=== PATIENT | male | born 2000 | race Two or more races ===

== ENCOUNTER → 2021-02-05 12:23 | Outpatient (CLI) | payer OTHER | END | disposition home or self-care (01) | LOC: RAD 12:23 | PROVIDERS: ATTEND General Practice | DX: M54.2 Cervicalgia (principal); J01.81 Other acute recurrent sinusitis ==

== ENCOUNTER 2023-06-27 08:12 | Outpatient (CLI) | payer OTHER | END 2023-06-27 08:26 | disposition home or self-care (01) | LOC: SONOGRAMA 08:12 | DX: Z13.1 Encounter for screening for diabetes mellitus (principal); Z13.220 Encounter for screening for lipoid disorders; Z13.0 Encounter for screening for diseases of the blood and blood-forming organs and certain disorders involving the immune mechanism; Z13.29 Encounter for screening for other suspected endocrine disorder; Z12.11 Encounter for screening for malignant neoplasm of colon; Z11.3 Encounter for screening for infections with a predominantly sexual mode of transmission; Z13.21 Encounter for screening for nutritional disorder; K29.51 Unspecified chronic gastritis with bleeding; K29.50 Unspecified chronic gastritis without bleeding; K29.70 Gastritis, unspecified, without bleeding ==